=== PATIENT | female | born 1990 ===

== ENCOUNTER 2018-04-09 19:41 | Inpatient (IN) | payer BC, SELFPAY ==
[2018-04-09 21:14] VITALS: BMI 41.1
[2018-04-09] MEDS ORDERED: Promethazine HCl 25 MG/ML VIAL IM PRN (21:42)
[2018-04-09] MEDS ORDERED: Acetaminophen/Codeine 30-300mg Tablet PO PRN ×2 (21:42)
[2018-04-09] MEDS ORDERED: Milk Of Magnesia 30 ML UDCUP PO PRN (21:42)
[2018-04-09] MEDS ORDERED: Ondansetron HCl/PF 4 MG/2 ML Vial IVP PRN (21:42)
[2018-04-09] MEDS ORDERED: Adacel (T-DAP) 0.5 ML VIAL IM ONE (21:42)
[2018-04-09 22:15] LABS: Amphetamine Not Detected (NotDetected); Benzodiazepine Screen Not Detected (NotDetected); Cocaine Metabolite Screen Not Detected (NotDetected); Medtox Reader # READER 1; Methadone Not Detected (NotDetected); Methamphetamine Not Detected (NotDetected); Opiate Screen Not Detected (NotDetected); Phencyclidine (PCP) Not Detected (NotDetected); THC/Cannabinoid Screen Not Detected (NotDetected); Tricyclic Screen Not Detected (NotDetected)
[2018-04-09 22:16] LABS: Barbiturates Screen Not Detected (NotDetected); Medtox Control Line Valid? VALID (VALID); Oxycodone Screen Not Detected (NotDetected)
[2018-04-09 22:37] LABS: Hemoglobin 11.2 g/dL (12.0-16.0); Mean Corpuscular HGB CONC 35.1 g/dL (32.0-36.0); Mean Corpuscular Hemoglobin 29.6 pg (27.0-31.0); Mean Corpuscular Volume 84.3 fL (78.0-98.0); Mean Platelet Volume 6.6 fL (7.4-10.4); Platelet Count 197 thou/uL (130-400); RBC Distribution Width 12.1 % (11.5-14.5); Red Blood Cell (RBC) Count 3.79 mill/uL (4.20-5.40); White Blood Cell (WBC) Count 12.9 thou/uL (4.8-10.8)
[2018-04-09 23:16] LABS: Syphilis Antibody Nonreactive (Nonreactive); Syphilis Antibody Index 0.04 S/CO (<1.00 Non-Reactive)
[2018-04-09 23:25] LABS: HIV (1/2) Antibody/Antigen Non-Reactive (NonReactive); HIV 1/2 INDEX 0.08 S/CO (<1.00); Hep B Surf Ag Non-Reactive S/CO (NonReactive)
--- NOTE | 2018-04-10 01:14 | PDOC.PP ---
Post Progress Note Post Day #: PPD#1 Subjective: Resting comfortably, no complaints. PO intake tolerated: yes Ambulation: yes Vital Signs (12 hours) Temp Pulse Resp 04/09/18 21:20 99.1 F 78 18 Weight Weight 108.862 kg - Physical Examination General: NAD Respiratory: non-labored breathing Abdominal: no distention Fundus firm & at: fundus firm well below umbilicus Psychiatric: A&Ox3, normal affect Result Diagrams: 04/09/18 22:26 Additional Labs: Post Labs Blood Type A NEGATIVE 04/09/18 22:26 Hep Bs Antigen Non-Reactive S/CO (NonReactive) 04/09/18 22:26 - Assessment/Plan S/p precip of 2nd trimester DIU in [place] [facility] Doing well. Routine care. H/H in AM. Rhogam ordered.
[2018-04-10 04:57] LABS: Mean Corpuscular HGB CONC 33.7 g/dL (32.0-36.0); Mean Corpuscular Hemoglobin 28.7 pg (27.0-31.0); Mean Corpuscular Volume 85.3 fL (78.0-98.0); Mean Platelet Volume 7.1 fL (7.4-10.4); Platelet Count 207 thou/uL (130-400); RBC Distribution Width 12.2 % (11.5-14.5); Red Blood Cell (RBC) Count 3.49 mill/uL (4.20-5.40); White Blood Cell (WBC) Count 9.7 thou/uL (4.8-10.8)
[2018-04-10] MEDS: Ibuprofen 800 MG TAB PO SCH ×2 (05:16→05:59)
--- NOTE | 2018-04-10 05:55 | HP ---
DATE OF ADMISSION: 04/09/2018 ADMITTING PHYSICIAN: Armando Shelton M.D. CHIEF COMPLAINT: Status post vaginal delivery of a stillborn in [place] earlier today. HISTORY OF PRESENT ILLNESS: Ms. Bowen is a 27-year-old, white, G2, P0, AB1 with a reported last menstrual period of sometime in October, who presented to the [place] ER complaining of bleeding and cramping. In the ER, there she apparently delivered of a stillborn of approximately 1000 grams, followed by delivery of the placenta. There she was given Methergine after delivery of the placenta. She was also given Toradol. The patient states that she was unaware that she was . PAST OBSTETRICAL HISTORY: Includes one early miscarriage. PAST MEDICAL HISTORY: None. PAST SURGICAL HISTORY: None. CURRENT MEDICATIONS: None. ALLERGIES: No known allergies. SOCIAL HISTORY: Denies tobacco, alcohol, or illicit drug use. FAMILY HISTORY: Unremarkable. REVIEW OF SYSTEMS: Denies nausea, vomiting, fever, or chills. PHYSICAL EXAMINATION: VITAL SIGNS: Upon evaluation here, blood pressure 137/74, pulse 82, temperature 99.1. LUNGS: Chest clear to auscultation. CARDIOVASCULAR: Regular rate and rhythm. ABDOMEN: Soft and nontender. The fundus is below the umbilicus. PELVIC: There is no evidence of external or vaginal lacerations. Clot is removed from her lower uterine segment on bimanual exam. The uterus is firm and approximately 14 weeks in size. LABORATORY DATA: From [place] shows that she is A negative with a negative antibody screen. ASSESSMENT: Status post vaginal delivery of a suspected second trimester in utero. PLAN: The patient will be admitted for care. Routine labs and drug screen has been obtained. She will require RhoGAM during her day. LIDIAD
[2018-04-10 07:53] VITALS: BP 133/72; TEMP 98.9
[2018-04-10] MEDS ORDERED: Ferrous Sulfate 325 MG TAB PO SCH (08:00)
[2018-04-10] MEDS ORDERED: Docusate Calcium (SURFAK) 240 MG CAP PO SCH (09:00)
--- NOTE | 2018-04-10 10:53 | DIS ---
DATE OF ADMISSION: 04/09/2018 DATE OF DISCHARGE: 04/10/2018 SUMMARY OF HOSPITAL COURSE: Ms. Bowen is a 27-year-old 2, para 0, who had a labor with delivery of an IUFD at 20 weeks gestation in [place]. She was transferred here for followup from the emergency room. She was noted to be Rh negative. The patient received RhoGAM. She is carlos ined afebrile with minimal bleeding and during her hospital stay. She is discharged home with follow up with her primary care physician in 4-6 weeks with ER precautions for fever or heavy bleeding.
== END 2018-04-10 10:30 | disposition home or self-care (01) | DRG 776 ==
LOC: L&D 21:02 → 3SE 04-10 00:10
PROVIDERS: ADMIT Obstetrics & Gynecology; ATTEND Obstetrics & Gynecology
DX: O90.89 Other complications of the puerperium, not elsewhere classified (principal); Z67.11 Type A blood, Rh negative
CPT/HCPCS: 36415; 80306; 85027; 85461; 86762; 86780; 86850; 86900; 86901; 87340; 87389; 90384; 96372